=== PATIENT | male | born 1975 | race Caucasian/White ===

== ENCOUNTER 2022-05-06 10:35 | Emergency (ER) | payer BC, SELFPAY ==
--- NOTE | 2022-05-06 10:40 | ED.UPPEXIN ---
HPI - Extremity Injury (Upper) General Chief Complaint: Extremity Injury, Upper Stated Complaint: Left Arm Pain Time Seen by Provider: 05/06/22 10:40 Source: patient Mode of arrival: ambulatory Limitations: no limitations History of Present Illness HPI narrative: Mr. Shook is a 46-year-old male patient presenting to the clinic today with complaints of left arm pain x3 weeks. He reports no known injury but does work at [employer] and does a lot of heavy lifting. He reports pain to the posterior shoulder that radiates down into his hand. Also reports that he feels as though his forearm muscles are being ripped. Has had this in the past and seen a chiropractor and this has helped. He saw his chiropractor today and is having worsening of pain in the left shoulder. Also states that he tried to make an appointment with his PCP but they could not get in until next week. Rates his pain currently an 8 out of 10. Has been taking Tylenol and Aleve without relief Related Data Allergies Allergy/AdvReac Type Severity Reaction Status Date / Time mold AdvReac Severe Difficulty Verified 05/06/22 10:53 Breathing shrimp AdvReac Severe Difficulty Verified 05/06/22 10:53 Breathing Review of Systems Review of Systems: Pertinent positives per HPI. Patient denies any fever, chills, rash, headache, visual changes, dizziness, cough, runny nose, sore throat, shortness of breath, chest pain, palpitations, nausea, vomiting, diarrhea, constipation, abdominal pain, or any urinary issues. PMFSH Past Medical History Medical History HLD (hyperlipidemia) HTN (hypertension) No pertinent family history Surgical History Surgical History No significant past surgical history Social History Social History Smoking status: Current every day smoker Comments At the time of my signature, I reviewed and agree with the nursing past medical, surgical, social, and family history. There is no relevant family history pertinent to the patient complaint. Exam Narrative: General: Well-developed, well nourished, in no apparent distress Head: Normocephalic, atraumatic. Cardio: Regular rate and rhythm, s1 and s2 normal, no murmur appreciated. Resp: Clear to auscultation bilaterally, no rhonchi, rales, wheezing or rubs. Musculoskeletal: No deformity, mild tender to palpation over the posterior shoulder with sharp pain radiating down the humerus into the elbow and then radiating into the hand over the radial side. States that his thumb and first finger/medial finger is numb, hand cleaners equal and strong, negative empty can and full can test, pain to the posterior shoulder with Hawking's test, grossly normal range of motion, muscle strength strong and equal, peripheral pulse strong, no edema, no cyanosis, normal gait and station Course Course Emergency Course: Portions of this record may have been created with voice recognition software. Level of Care: Express Care Visit Vital Signs Vital signs: Vital signs reviewed MDM - Extremity Injury (Upper) MDM Narrative Medical decision making narrative: At the time of visit patient is resting comfortably on exam table. I suspect the patient has posterior shoulder tendinitis with radicular pain to the left arm. Also reports muscle spasming ripping sensation to the forearm I will place him on a prescription for some prednisone and cyclobenzaprine and have him follow-up with his PCP for further evaluation and diagnostic testing if needed. Offered Toradol 60 mg IM injection in the clinic and patient declined and states that he does not do shots. Supportive measures were discussed with the patient he voiced understanding of discharge instructions and agrees to treatment plan. When nurse went into the exam room patient expressed that he was u
[2022-05-06 10:42] VITALS: BP 147/77; PULSE 78; RESP 16; TEMP 37.1; O2SAT 100
== END 2022-05-06 11:10 | disposition home or self-care (01) ==
PROVIDERS: Emergency Provider Nurse Practitioner Family; PCP Nurse Practitioner Family
DX: M77.8 Other enthesopathies, not elsewhere classified (principal); M54.10 Radiculopathy, site unspecified; S46.312A Strain of muscle, fascia and tendon of triceps, left arm, initial encounter; F17.200 Nicotine dependence, unspecified, uncomplicated; E78.5 Hyperlipidemia, unspecified; I10 Essential (primary) hypertension; X58.XXXA Exposure to other specified factors, initial encounter
CPT/HCPCS: 99213; G0463